=== PATIENT | male | born 1975 | race Caucasian/White ===

== ENCOUNTER 2022-08-01 16:52 | Emergency (ER) | payer OTHER, SELFPAY ==
--- NOTE | ~2022-08-01 | XR_ITS ---
EXAMINATION: XR chest 2V Exam Date/Time: 08/01/2022 16:30 CDT HISTORY: Cough and congestion since sunday Comparison: None. RESULT: Lines, tubes, and devices: None. Lungs and pleura: Clear. Cardiomediastinal silhouette: Stable. Calcified subcarinal lymph node. Other: No acute osseous or upper abdominal finding. IMPRESSION: No acute cardiopulmonary process. Reviewed, dictated and finalized at location K.
--- NOTE | ~2022-08-01 | XR_ITS ---
EXAM: XR lumbar spine 2-3V DATE: 08/02/2022 12:48 HISTORY: Pain in lumbar radiating down both legs since yest . COMPARISON: None available. FINDINGS: 5 nonrib-bearing lumbar-type vertebral bodies. Pedicles intact. Normal vertebral body alig nment. Vertebral body heights preserved. Mild degenerative disc disease at L4-5 and L5-S1. Mild lower lumbar facet arthropathy. No fracture or dislocation. IMPRESSION: No acute fracture or traumatic malalignment detected in the lumbar spine. Reviewed, dictated and finalized at location K.
--- NOTE | 2022-08-01 17:55 | ED_ITS ---
HPI - General Adult General Chief complaint: Upper Respiratory Infection Stated complaint: cold moved to back Related Data Allergies Allergy/AdvReac Type Severity Reaction Status Date / Time Penicillins Allergy Unknown Verified 05/09/18 09:56 No Known Allergies Allergy Unverified 02/16/17 16:50 [facility] Past Medical History Medical History (Updated 08/01/22 @ 17:55 by Primitivo Pennington, [facility], ) Low back strain Family History Family History (Updated 05/09/18 @ 09:57 by DOCTOR UNKNOWN) Other Diabetes mellitus Hypertension Social History Social History Smoking status: Never smoker Alcohol intake: current Course Course Emergency Course: THIS IS A 46-YEAR-OLD MALE WHO PRESENTED FOR EVALUATION OF RESPIRATORY SYMPTOMS AND LOW BACK PAIN. PLEASE SEE PAPER CHART FOR ADDITIONAL DETAILS RELATED TO HISTORY, AND PHYSICAL EXAM. UNFORTUNATELY WEEKS PARENTS DOWN TIME PATIENT WAS HERE. STREP AND COVID WERE NEGATIVE. UNFORTUNATELY WILL NOT BE ABLE TO SEE IMAGES OF HIS FILMS ON EITHER CHEST X-RAY OR LUMBAR SPINE UNTIL TOMORROW PER CANCER GENETICS ASSISTANT. WILL ERR ON THE SIDE OF CAUTION AND PROVIDE HIM WITH SCRIPTS FOR VANTIN AND AZITHROMYCIN. IN TERMS OF HIS LOW BACK, WILL GIVE HIM MEDROL DOSE PACK, FLEXERIL, AND SMALL QTY OF HYDROCODONE. HE WAS ENCOURAGED TO FOLLOW UP THIS WEEK AND GO TO ER FOR WORSENING SYMPTOMS. PT IN AGREEMENT WITH PLAN OF CARE. Level of Care: Express Care Visit Medical Decision Making Lab Data Labs: Lab Results 08/01/22 Range/Units 16:30 POC SARS CoV-2 Ag Negative (Negative) Strep Screen Presumptive Negative *(Reference Range: Negative)* Discharge Plan Discharge Clinical Impression: Acute respiratory infection, Low back strain Patient Disposition: Home, Self-Care Condition: Stable Instructions: Antibiotic Form, Low Back Strain (ED), Acute Cough (ED) Patient Language: Ethiopian Prescriptions: New cefpodoxime 200 mg tablet 200 mg PO BID Qty: 14 0RF Rx Instructions: must administer with a meal/food azithromycin 250 mg tablet See Rx Instructions .ROUTE .COMPLEX Qty: 6 0RF Rx Instructions: For 250 mg dose pack: take 500 mg today (day 1), then 250 mg for 4 days (days 2-5) methylprednisolone [Medrol (Shaheen)] 4 mg tablets,dose pack See Rx Instructions .ROUTE .COMPLEX Qty: 21 0RF Rx Instructions: orally per package directions hydrocodone-acetaminophen 10-325 mg tablet 0.5 - 1 tablet PO Q6-8H PRN (Reason: pain) Qty: 10 0RF cyclobenzaprine 10 mg tablet 10 mg PO TID PRN (Reason: muscle spasm) Qty: 15 0RF Follow-up/Referrals: Jamie Cruz MD [Physician] - Stand Alone Forms: Work/School Release IP Time of Disposition: 17:55
== END 2022-08-01 18:04 | disposition home or self-care (01) ==
PROVIDERS: Emergency Provider Nurse Practitioner
DX: J06.9 Acute upper respiratory infection, unspecified (principal); S39.012A Strain of muscle, fascia and tendon of lower back, initial encounter; X58.XXXA Exposure to other specified factors, initial encounter; Z20.822 Contact with and (suspected) exposure to COVID-19
CPT/HCPCS: 71046; 72100; 87081; 87426; 87880; 99213; C9803; G0463

== ENCOUNTER 2024-06-16 11:24 | Emergency (ER) | payer OTHER, SELFPAY ==
[2024-06-16 11:30] VITALS: BP 144/101; PULSE 92; RESP 16; TEMP 36.6; O2SAT 96
--- NOTE | 2024-06-16 11:46 | ED_ITS ---
HPI - Back Pain/Injury General Chief Complaint: Back Pain/Injury Stated Complaint: lower back pain Time Seen by Provider: 06/16/24 11:46 Source: patient, RN notes reviewed and old records reviewed Mode of arrival: ambulatory Limitations: no limitations History of Present Illness HPI Narrative: 48 year old male presents to [facility] care with complaints of lower back pain since Sunday which goes to the top of his butt cheeks but doesn't radiate down the back of his legs. Patient reports no known injury to his back, denies any lifting or pulling injury. Patient reports that every so often his back just doesn't like him and he has problems. Patient reports no numbness or tingling to his legs, denies any difficulty with his bowel or bladder function or any saddle paraesthesia. Patient reports that he has been using Biofreeze ointment to his back, using heat and stretching MD elicited complaint: back pain Pertinent past history: prior back pain Onset (ago): day(s) (4 days) Pain scale (0-10): 7 Treatments prior to arrival: heat therapy and other (Biofreeze ointment, heat stretching) Work related injury: No Related Data Allergies Allergy/AdvReac Type Severity Reaction Status Date / Time Penicillins Allergy Unknown Unknown Verified 06/16/24 11:35 Review of Systems Review of Systems: CONSTITUTIONAL: Denies fever, chills, or sweats. EYES: Denies visual changes, redness, or discharge. ENT: Denies rhinorrhea, congestion, sore throat, or otalgia. CARDIOVASCULAR: Denies chest pain, palpitations, or edema. RESPIRATORY: Denies cough or dyspnea. GASTROINTESTINAL: Denies abdominal pain, nausea, vomiting, or diarrhea. GENITOURINARY: Denies dysuria or hematuria. SKIN: Denies rash or itching. MUSCULOSKELETAL: Reports bilateral lower back pain , or myalgia. NEUROLOGIC: Denies headache, numbness, or weakness. PSYCHIATRIC: Denies anxiety or depression. All systems reviewed & are unremarkable except as noted in HPI and below PMFSH Past Medical History Medical History (Updated 06/16/24 @ 11:57 by Mira Guzman NP) Low back strain Family History Family History (Updated 05/09/18 @ 09:57 by DOCTOR UNKNOWN) Other Diabetes mellitus Hypertension Social History Social History Smoking status: Never smoker Alcohol intake: current Comments At time of signature, agree with nursing past medical, surgical, social and family history. There is no relevant family history pertinent to the presenting complaint Exam Narrative: GENERAL: Well-appearing, well-nourished, and in no acute distress. HEAD: Normocephalic, atraumatic. EYES: PERRLA and EOMI. ENT: Nares clear, no rhinorrhea or epistaxis. Mucous membranes moist.TM's normal throat pink with no swelling or redness. NECK: Supple. no lymphadenopathy CHEST: Clear to auscultation. No respiratory distress. SAO2 96% on room air HEART: Regular rate and rhythm. No murmur heard. Normal peripheral pulses. ABDOMEN: Soft, nontender, nondistended, normal active bowel sounds. EXTREMITIES: Normal range of motion. No edema. pain across lower back down into top of buttock with no radiation into legs, with no saddle paraesthesia, no bowel or bladder dysfunction, Patient reports no tingling or numbness to legs. SKIN: Warm, dry, no rash. NEURO: No focal deficits. Alert and oriented x3. Course Course Emergency Course: Patient is aware of diagnosis, understands and agrees to treatment plan.? Anticipatory guidance given.? Patient agrees to follow-up as directed and is aware of reasons to seek care at the emergency department. Portions of this record may have been created with voice recognition software Level of Care: Express Care Visit Vital Signs Vital signs: Vital Signs Temperature 36.6 C 06/16/24 11:30 Pulse Rate 92 06/16/24 11:30 Respiratory Rate 16 06/16/24 11:30 Blood Pressure 144/101 H 06/16/24 11:30 Pulse Oximetry 96 06/16/24 11:30 Oxygen Delivery Room Air 06/16/24 11:30 Temperature 36.6 C 06/16/24 11:30 Pulse Rate 92 06/16/24 11:30 Respiratory Rate 16 06/16/24 11:30 Blood Pressure 144/101 H 06/16/24 11:30 Pulse Oximetry 96 06/16/24 11:30 Oxygen Delivery Room Air 06/16/24 11:30 Reviewed MDM - Back Pain/Injury Differential Diagnosis Differential diagnosis: Likely lumbar radiculopathy, sciatica, strain of lumbar region and other (low back pain) Medical Records Attestation: I reviewed the patient's medical records. Critical Care Time Critical Care Time Critical Care Time: No Discharge Plan Discharge Clinical Impression: Low back strain Qualifiers: Encounter type: initial encounter Qualified Code(s): S39.012A - Strain of muscle, fascia and tendon of lower back, initial encounter Patient Disposition: Home, Self-Care Condition: Stable Instructions: Antibiotic Form, Back Pain (ED) Additional Instructions: Ice and heat to the area for 20-30 minutes Gentle stretching exercises Gentle massage Caution with lifting, bending, stooping, twisting Avoid pushing, pulling take muscle relaxants as directed--caution drowsiness and no driving or alcohol Anti-inflammatory medicine as directed--take with food such as Ibuprofen 600 mg 3 times daily with food for the next 2-3 days then as needed He may take the muscle relaxant and anti-inflammatory at the same time Prednisone take as prescribed for 5 days 2 X daily Follow-up with your PCP if not improving in 5-7 days If your symptoms persist, change or worsen significantly before you can contact your personal physician then please, without delay, go to the emergency department for further evaluation. Follow-up with PCP in 7-10 days or sooner if needed Follow up with PCP soon in regards to your blood pressure which is elevated above threshold for referral. Blood pressure above 120/80 may indicate pre- hypertension. 144/101 Patient Language: Peruvian Prescriptions: New cyclobenzaprine 10 mg tablet 10 mg PO TID PRN (Reason: muscle spasm) Qty: 20 0RF Rx Instructions: can not drive or operate machinery while taking this medication. If working take only at bedtime. prednisone 20 mg tablet 20 mg PO BID Qty: 10 0RF Rx Instructions: take with food No Action cefpodoxime 200 mg tablet 200 mg PO BID Qty: 14 0RF Rx Instructions: must administer with a meal/food azithromycin 250 mg tablet See Rx Instructions .ROUTE .COMPLEX Qty: 6 0RF Rx Instructions: For 250 mg dose pack: take 500 mg today (day 1), then 250 mg for 4 days (days 2-5) methylprednisolone [Medrol (Shaheen)] 4 mg tablets,dose pack See Rx Instructions .ROUTE .COMPLEX Qty: 21 0RF Rx Instructions: orally per package directions hydrocodone-acetaminophen 10-325 mg tablet 0.5 - 1 tablet PO Q6-8H PRN (Reason: pain) Qty: 10 0RF cyclobenzaprine 10 mg tablet 10 mg PO TID PRN (Reason: muscle spasm) Qty: 15 0RF Follow-up/Referrals: PHYSICIAN,RABBET OPERATOR [Primary Care Provider] - Time of Disposition: 12:01 Quality Radha Coma Scale Eyes: Open Verbal: Oriented and Alert Motor: Follows Commands [place] Coma Total Score: 15
--- OUTSIDE RECORDS SUMMARY | 2024-06-16 13:29 | XMS_ITS | Referral Summary ---
Author Organization [facility] [place] [address] [facility] [address] Address [address] [place] [address] Care Team Providers Care Network Communications Engineer Name Role Phone Brigida Valencia NP Primary Care Provider Allergies Active Allergy Reactions Criticality Noted Date Comments Penicillins Other (See comments) Low 05/03/2020 Patient states nothing happens. His body rejects it. Medications ibuprofen (ADVIL,MOTRIN) 800 mg tabletIndications:M uscle spasm Take 1 tablet (800 mg total) by mouth 3 (three) times a day 90 tablet 3 Active cyclobenzaprine (FLEXERIL) 5 mg tabletIndications:M uscle spasm Take 1 tablet (5 mg total) by mouth 2 (two) times a day as needed for muscle spasms 30 tablet 3 Active ergocalciferol (VITAMIN D) 50,000 unit capsuleIndications: Vitamin D deficiency Take 1 capsule (50,000 Units total) by mouth once a week 12 capsule 4 3 Active atorvastatin (LIPITOR) 10 mg tabletIndications:H yperlipidemia, unspecified hyperlipidemia type Take 1 tablet (10 mg total) by mouth daily 90 tablet 4 3 Active Active Problems No known active problems Immunizations Immunization Administration Dates Next Due Influenza, Unspecified 12/24/2021(Deferr ed: Patient Refused),12/24/2020(Deferred: Patient Refused) Social History Tobacco Use Types Packs/Day Years Used Date Smoking Tobacco: Never Smokeless Tobacco: Never AUDIT-C Answer Date Recorded Q1: How often do you have a drink containing alc ohol? Monthly or less 10/17/2022 Q2: How many drinks containi ng alcohol do you have on a typical day when you are drinking? 1 or 2 10/17/2022 Q3: How often do you have si x or more drinks on one occasion? 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 Gender Identity Male 10/17/2022 7:47 AM CDT Sexual Orientation Straight 10/17/2022 7: 47 AM CDT Last Filed Vital Signs Vital Sign Reading Time Taken Comments Blood Pressure 126/96 10/17/2022 8:05 AM CDT Pulse 85 10/17/2022 8:05 AM CDT Temperature 36.7 C (98 F) 10/17/2022 8:05 AM CDT Respiratory Rate 16 10/17/2022 8:05 AM CDT Oxygen Saturation 98% 10/17/2022 8:05 AM CDT Inhaled Oxygen Concentration - - Weight 112.3 kg (247 lb 9.6 oz) 10/17/2022 8:05 AM CDT Height 183.3 cm (6' 0.17 ) 10/17/2022 8:05 AM CD T Body Mass Index 33.43 10/17/2022 8:05 AM CDT Plan of Treatment Not on file Insurance [facility]/PPO Address: [id number] [place] [address] [facility]PPO Address: [facility] [id number] [phone] Care Teams Network Communications Engineer Relationship Specialty Start Date End Date Brigida Valencia NP PCP - General Family Medicine 10/17/22
--- OUTSIDE RECORDS SUMMARY | 2024-06-16 13:29 | XMS_ITS | Clinical Summary ---
Author Organization [facility] [address] [facility] Address [address] [place] [address] Care Team Providers Care Business Improvement Manager Name Role Phone Brigida Valencia NP Primary Care Provider [phone] Allergies Active Allergy Reactions Criticality Noted Date [...] Unspecified 12/24/2021(Deferr ed: Patient Refused),12/24/2020(Deferred: Patient Refused) Family History Medical History Relation Name Comments No Known Problems Father Breast cancer Father's Sister Patient sta rebekah all of my aunts had breast cancer Colon cancer Maternal Grandfather Alzheimer's disease Maternal Grandmother Brain cancer Mother Breast cancer Mother Lung cancer Mother Relation Name Status Comments Father Father's Sister Maternal Grandfather Maternal Grandmother Mother Alive Paternal Grandfather Paternal Grandmother Social History Tobacco Use Types Packs/Day Years [...] on file 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 Gender Identity Male 10/17/2022 7:47 AM CDT Sexual Orientation Straight 10/17/2022 7: 47 AM CDT Obstetrics History Last Filed Vital Signs Vital Sign Reading [...] 10/17/2022 8:05 AM CDT Plan of Treatment Health Maintenance Due Date Last Done Comments Colon Cancer Screening-Colonoscopy 1977 Hepatitis C Screening 1977 DTaP/Tdap/Td Vaccine (1 - Tdap) 1988 Hepatitis B Screening 09/16/1995 Regular Well Visit/Exam 18-64 09/16/1995 Depression Screening 10/18/2023 10/17/2022 Influenza Vaccine (#1) 2023 HPV Vaccines Aged Out No longer eligi ble based on patient's age to complete this topic Pneumococcal vaccine <65 Aged Out No longer eligible based on patient's age to complete this topic Insurance [facility] Address: [address] [address] [place] [address] [facility] Address: [address] [address] [place] [address] Care Teams Business Improvement Manager Relationship Specialty Start Date End Date Brigida Valencia NP PCP - General Family Medicine 10/17/22
== END 2024-06-16 12:05 | disposition home or self-care (01) ==
PROVIDERS: Emergency Provider Registered Nurse
DX: S39.012A Strain of muscle, fascia and tendon of lower back, initial encounter (principal); X58.XXXA Exposure to other specified factors, initial encounter
CPT/HCPCS: 99213; G0463